=== PATIENT | male | born 1975 | race Caucasian/White ===

== ENCOUNTER 2018-11-05 22:50 | Emergency (ER) | payer SELFPAY ==
[2018-11-05] MEDS ORDERED: Ketorolac Tromethamine 30 MG/ML VIAL ONE (23:20)
== END 2018-11-05 23:40 | disposition home or self-care (01) ==
LOC: ERS 22:50
DX: M79.672 Pain in left foot (principal); R25.2 Cramp and spasm
CPT/HCPCS: 96372; 99283; J1885

== ENCOUNTER 2018-12-25 18:27 | Emergency (ER) | payer SELFPAY ==
[2018-12-25 19:00] LABS: #Basophils 0.1 thou/uL (0.0-0.2); #Eosinphils 0.2 thou/uL (0.0-0.7); #Lymphocytes 2.5 thou/uL (1.20-3.40); #Monocytes 0.5 thou/uL (0.11-0.59); #Neutrophils 4.4 thou/uL (1.40-6.50); %Eosinophils 2.4 % (0.0-10.0); %Lymphocytes 32.4 % (21.0-51.0); %Monocytes 6.4 % (0.0-10.0); %Neutrophils 57.8 % (42.0-75.0); Hemoglobin 14.6 g/dL (14.0-18.0); Mean Corpuscular HGB CONC 36.2 g/dL (32.0-36.0); Mean Corpuscular Hemoglobin 32.8 pg (27.0-31.0); Mean Corpuscular Volume 90.4 fL (78.0-98.0); Platelet Count 222 thou/uL (130-400); RBC Distribution Width 11.2 % (11.5-14.5); Red Blood Cell (RBC) Count 4.46 mill/uL (4.70-6.10); White Blood Cell (WBC) Count 7.6 thou/uL (4.8-10.8)
[2018-12-25 19:17] LABS: ALT (SGPT) 25 U/L (8-55); AST (SGOT) 26 U/L (5-34); Albumin 4.3 g/dL (3.5-5.0); Alkaline Phosphatase 69 U/L (40-150); Anion Gap 15 mmol/L (10-20); BUN (Urea Nitrogen) 9 mg/dL (8.9-20.6); Bilirubin, Total 0.9 mg/dL (0.2-1.2); Calc. Creatinine Clearance 0 mL/min (70-130); Calcium 8.8 mg/dL (7.8-10.44); Carbon Dioxide 25 mmol/L (22-29); Chloride 106 mmol/L (98-107); Estimated GFR-MDRD Greater than 90; Globulin 2.3 g/dL (2.4-3.5); Glucose 101 mg/dL (70-105); Lipase 32 U/L (8-78); Potassium 3.5 mmol/L (3.5-5.1); Protein, Total 6.6 g/dL (6.0-8.3); Sodium 142 mmol/L (136-145)
[2018-12-25] MEDS ORDERED: Ketorolac Tromethamine 30 MG/ML VIAL ONE (19:26)
--- NOTE | 2018-12-25 20:25 | CT ---
CT ABDOMEN AND PELVIS WITH IV CONTRAST: History: Right lower quadrant pain. FINDINGS: The lung bases are clear. The patient is post cholecystectomy. The liver, spleen, pancreas, adrenal g lands and kidneys are normal. No free air, free fluid, or lymphadenopathy is seen in the abdomen or p crescencio. A normal appearing appendix is present. The small bowel loops are not abnormally dilated. Ther e are mild degenerative changes in the spine. The urinary bladder is not satisfactorily distended res ulting in prominence of the urinary bladder wall. Clinically correlate for cystitis. IMPRESSION: No evidence of appendicitis. POS: [facility]
[2018-12-25 20:31] LABS: Bilirubin Negative (Negative); Blood, Urine Negative (Negative); Clarity Clear (Clear); Glucose, Urine (Dipstick) Negative (Negative); Leukocyte Negative (Negative); Nitrite Negative (Negative); Protein, Urine (Dipstick) Negative (Neg-Trace)
== END 2018-12-25 21:06 | disposition home or self-care (01) ==
LOC: SCSER 18:27
DX: R10.31 Right lower quadrant pain (principal)
CPT/HCPCS: 74177; 80053; 81003; 83690; 85025; 96361; 96374; J1885

== ENCOUNTER 2019-02-27 16:06 | Outpatient (CLI) | payer OTHER ==
--- NOTE | 2019-02-27 17:35 | CT ---
EXAM: CT sinuses without contrast HISTORY: Chronic right maxillary sinusitis COMPARISON: None TECHNIQUE: Multiple contiguous axial images were obtained and a CT of the face without contrast. Sagi ttal and coronal reformats were performed. FINDINGS: No facial fractures are identified. No facial soft tissue swelling is seen. The globes and retrobulbar soft tissues are unremarkable. The visualized paranasal sinuses are well aerated without evidence of opacification. Mild nasal septa l deviation to the right is seen. No mucosal thickening or mucous retention cysts are seen in any of the sinuses. The mastoid air cells are well aerated. Visualized intracranial structures are unremarkable. IMPRESSION: No significant sinus disease.
== END 2019-02-27 16:07 | disposition home or self-care (01) ==
LOC: SCSCT 16:06
PROVIDERS: ATTEND Family Medicine
DX: J32.0 Chronic maxillary sinusitis (principal)

== ENCOUNTER 2019-03-18 10:01 | Emergency (ER) | payer SELFPAY ==
[2019-03-18 10:34] LABS: #Lymphocytes 0.9 thou/uL (1.20-3.40); #Monocytes 0.6 thou/uL (0.11-0.59); #Neutrophils 4.1 thou/uL (1.40-6.50); %Basophils 0.9 % (0.0-1.0); %Eosinophils 0.4 % (0.0-10.0); %Lymphocytes 16.4 % (21.0-51.0); %Neutrophils 72.3 % (42.0-75.0); Hemoglobin 15.2 g/dL (14.0-18.0); Mean Corpuscular HGB CONC 34.4 g/dL (32.0-36.0); Mean Platelet Volume 6.6 fL (7.4-10.4); Platelet Count 168 thou/uL (130-400); RBC Distribution Width 11.3 % (11.5-14.5); Red Blood Cell (RBC) Count 4.75 mill/uL (4.70-6.10); White Blood Cell (WBC) Count 5.6 thou/uL (4.8-10.8)
[2019-03-18] MEDS ORDERED: Ondansetron PF 4 MG/2 ML Vial ONE ×2 (10:42→11:14)
[2019-03-18] MEDS ORDERED: Morphine 10 MG/ML VIAL ONE (10:42)
--- NOTE | 2019-03-18 10:47 | RAD ---
EXAM: Portable chest PROVIDED CLINICAL HISTORY: Chest pain COMPARISON: None FINDINGS: Cardiac and mediastinal silhouette is within normal limits. No focal consolidation, pleural fluid or pneumothorax evident. IMPRESSION: No evidence for an acute cardiopulmonary process.
[2019-03-18 10:48] LABS: ALT (SGPT) 33 U/L (8-55); AST (SGOT) 39 U/L (5-34); Albumin 4.6 g/dL (3.5-5.0); Alkaline Phosphatase 79 U/L (40-110); Anion Gap 15 mmol/L (10-20); BUN (Urea Nitrogen) 11 mg/dL (8.9-20.6); Bilirubin, Total 1.4 mg/dL (0.2-1.2); Calc. Creatinine Clearance 0 mL/min (70-130); Calcium 8.9 mg/dL (7.8-10.44); Carbon Dioxide 23 mmol/L (22-29); Chloride 106 mmol/L (98-107); Estimated GFR-MDRD 89; Globulin 2.5 g/dL (2.4-3.5); Glucose 116 mg/dL (70-105); Potassium 4.1 mmol/L (3.5-5.1); Protein, Total 7.1 g/dL (6.0-8.3)
[2019-03-18 10:49] LABS: Sodium 140 mmol/L (136-145)
[2019-03-18] MEDS ORDERED: Ketorolac Tromethamine 30 MG/ML VIAL ONE ×2 (11:14→11:46)
[2019-03-18] MEDS ORDERED: Lidocaine Viscous Sol 2% 15 ml UD Cup ONE (11:56)
[2019-03-18] MEDS ORDERED: Mag-Al Plus 1200 MG/1200 MG/120 MG/30 ML UDCUP ONE (11:56)
[2019-03-18] MEDS ORDERED: Albuterol Sulfate 2.5 mg/0.5 ml Neb ONE ×2 (12:12)
[2019-03-18] MEDS ORDERED: Sodium Chloride For Inhalation 0.9% 3 ML NEB ONE (12:16)
[2019-03-18] MEDS ORDERED: Aspirin Chewable 81 MG TAB ONE (13:18)
[2019-03-18 13:48] LABS: Troponin I Less than 0.010 ng/mL (< 0.028)
== END 2019-03-18 14:35 | disposition home or self-care (01) ==
LOC: SCSER 10:01
DX: J10.1 Influenza due to other identified influenza virus with other respiratory manifestations (principal); R07.89 Other chest pain; G62.9 Polyneuropathy, unspecified; Z86.73 Personal history of transient ischemic attack (TIA), and cerebral infarction without residual deficits; Z79.899 Other long term (current) drug therapy
CPT/HCPCS: 36415; 71045; 80053; 83605; 83880; 84484; 85025; 85379; 87804; 93005; 96361; 96374; 96375; J1885; J2270; J2405; J7611

== ENCOUNTER 2019-06-04 14:38 | Outpatient (CLI) | payer BC ==
--- NOTE | 2019-06-04 15:17 | ULT ---
LEFT UPPER EXTREMITY VENOUS ULTRASOUND WITH DOPPLER: HISTORY: Evaluate position of the PICC line. TECHNIQUE: Grayscale, color flow, Doppler imaging, and spectral waveform analysis was performed of the left ex tremity venous system. FINDINGS: Jugular vein is patent. Subclavian vein is patent. PICC line is identified and the tip appears to be in the mid left subclavian vein. IMPRESSION: Catheter tip is in the mid left subclavian vein. Confirmation with chest radiograph if clinically war ranted. Transcribed Date/Time: 06/04/2019 3:30 PM
--- NOTE | 2019-06-04 15:27 | RAD ---
EXAM: Chest 2 views: HISTORY: Complication of infusion catheter COMPARISON: None. FINDINGS: There is a normal-sized cardiomediastinal silhouette. There is a left impression a PICC line with it s tip in the superior vena cava. There is no evidence of consolidation, mass, or pleural effusion. The bones are unremarkable. IMPRESSION: No evidence of acute cardiopulmonary disease
--- NOTE | 2019-06-07 10:17 | ULT ---
LEFT UPPER EXTREMITY VENOUS ULTRASOUND WITH DOPPLER: HISTORY: Evaluate position of the PICC line. TECHNIQUE: Grayscale, color flow, Doppler imaging, and spectral waveform analysis was performed of the left ex tremity venous system. FINDINGS: Jugular vein is patent. Subclavian vein is patent. PICC line is identified and the tip appears to be in the mid left subclavian vein. IMPRESSION: Catheter tip is in the mid left subclavian vein. Confirmation with chest radiograph if clinically war ranted. Transcribed Date/Time: 06/07/2019 10:16 AM
== END 2019-06-04 14:39 | disposition home or self-care (01) ==
LOC: BICULT 14:38
PROVIDERS: ATTEND Internal Medicine Infectious Disease
DX: T82.59 Other mechanical complication of other cardiac and vascular devices and implants (principal)
CPT/HCPCS: 71046